=== PATIENT | female | born 1985 | race African-American/Black ===

== ENCOUNTER 2017-10-26 09:31 | Outpatient (CLI) | payer MEDICAID ==
--- NOTE | 2017-10-26 11:17 | RAD ---
CERVICAL SPINE THREE VIEWS: HISTORY: Neck pain. COMPARISON: None. FINDINGS: Three views of the cervical spine show normal height and alignment of the vertebral bodies and interv ertebral disks without fracture or subluxation. No degenerative changes are seen. No prevertebral s oft tissue swelling is present. IMPRESSION: Unremarkable exam. POS: [facility]
--- NOTE | 2017-10-26 11:25 | RAD ---
RIGHT KNEE FOUR VIEWS: 10/26/2017 HISTORY: Right knee pain. COMPARISON: None. FINDINGS: Mild medial compartment narrowing. No fracture or dislocation. No knee joint effusion. IMPRESSION: No acute osseous abnormality. POS: [facility]
--- NOTE | 2017-10-26 11:32 | RAD ---
LEFT KNEE FOUR VIEWS: HISTORY: Left knee pain. FINDINGS: Joint spaces are preserved. No acute fracture, dislocation, or fluid distention of the suprapatellar bursa. IMPRESSION: No acute osseous abnormalities are demonstrated. POS: [facility]
== END 2017-10-26 09:32 | disposition home or self-care (01) ==
LOC: RAD 09:31
DX: M54.2 Cervicalgia (principal); M25.562 Pain in left knee; M25.561 Pain in right knee
CPT/HCPCS: 72040

== ENCOUNTER 2018-03-20 17:00 | Outpatient (CLI) | payer MEDICAID | END 2018-03-20 17:01 | disposition home or self-care (01) | LOC: SLEEPLAB 17:00 | PROVIDERS: ATTEND Otolaryngology Plastic Surgery within the Head & Neck | DX: G47.33 Obstructive sleep apnea (adult) (pediatric) (principal); R06.83 Snoring; R53.83 Other fatigue | CPT/HCPCS: 95806 ==

== ENCOUNTER 2018-04-24 08:27 | Outpatient (CLI) | payer MEDICAID, OTHER ==
--- NOTE | 2018-04-24 09:41 | RAD ---
PA AND LATERAL CHEST: History: Smoker. FINDINGS: Heart size and mediastinum are within normal limits. The lungs are clear of any focal infiltrative pr ocess. No significant bony findings. IMPRESSION: No active intrathoracic disease. POS: [facility]
== END 2018-04-24 08:28 | disposition home or self-care (01) ==
LOC: RAD 08:27
DX: F17.200 Nicotine dependence, unspecified, uncomplicated (principal)
CPT/HCPCS: 71046

== ENCOUNTER 2018-04-24 20:30 | Outpatient (CLI) | payer OTHER | END 2018-04-24 20:31 | disposition home or self-care (01) | LOC: SLEEPLAB 20:30 | PROVIDERS: ATTEND Otolaryngology Plastic Surgery within the Head & Neck | DX: G47.33 Obstructive sleep apnea (adult) (pediatric) (principal); R53.83 Other fatigue; R09.89 Other specified symptoms and signs involving the circulatory and respiratory systems; R06.83 Snoring; G47.00 Insomnia, unspecified; G47.10 Hypersomnia, unspecified; G47.12 Idiopathic hypersomnia without long sleep time; Z68.24 Body mass index [BMI] 24.0-24.9, adult | CPT/HCPCS: 95810 ==

== ENCOUNTER 2018-05-15 08:17 | Outpatient (CLI) | payer OTHER | END 2018-05-15 08:18 | disposition home or self-care (01) | LOC: CTENTCT 08:17 | PROVIDERS: ATTEND Otolaryngology Plastic Surgery within the Head & Neck | DX: J32.9 Chronic sinusitis, unspecified (principal) | CPT/HCPCS: 70486 ==

== ENCOUNTER 2018-06-14 08:25 | Day surgery (SDC) | payer OTHER ==
[2018-06-13 13:59] VITALS: BMI 26.5
[2018-06-14] MEDS ORDERED: Oxymetazoline HCl 0.05% ( 15 ML ) ONE ×2 (09:56→10:59)
[2018-06-14] MEDS ORDERED: Lidocaine 1% w/Epinephrine 1:100K 20 ML VIAL ONE (10:59)
[2018-06-14] MEDS ORDERED: Bacitracin Zinc Ointment 30 gm TUBE ONE (10:59)
[2018-06-14] MEDS ORDERED: Fentanyl 100 MCG/2 ML VIAL ONE ×3 (11:03→12:31)
[2018-06-14] MEDS ORDERED: methylPREDNISolone Acetate 40 mg/ml Vial ONE (11:04)
[2018-06-14] MEDS ORDERED: Ondansetron PF 4 MG/2 ML Vial ONE (12:02)
[2018-06-14] MEDS ORDERED: PROPOFOL 200 MG/20 ML VIAL ONE (12:02)
[2018-06-14] MEDS ORDERED: Rocuronium Bromide 10 MG/ML (10ML VIAL) ONE (12:02)
[2018-06-14] MEDS ORDERED: Lidocaine 1% PF 5 ML VIAL ONE (12:02)
[2018-06-14] MEDS ORDERED: Glycopyrrolate 0.2 MG/ML 5 ML SYRINGE ONE (12:02)
[2018-06-14] MEDS ORDERED: Dexamethasone 20 MG/5 ML VIAL ONE (12:02)
[2018-06-14] MEDS ORDERED: Morphine 2 MG/ML SYRINGE ONE (13:28)
[2018-06-14] MEDS ORDERED: Hydrocodone-Acetamin 15 ML UDCUP ONE (14:33)
--- NOTE | 2018-06-15 12:50 | OP ---
DATE OF PROCEDURE: 06/14/2018 PREOPERATIVE DIAGNOSES: 1. Chronic rhinosinusitis. 2. Bilateral inferior turbinate hypertrophy. 3. Nasal obstruction. POSTOPERATIVE DIAGNOSES: 1. Chronic rhinosinusitis. 2. Bilateral inferior turbinate hypertrophy. 3. Nasal obstruction. PROCEDURES PERFORMED: 1. Bilateral endoscopic sinus surgery, total ethmoidectomies. 2. Bilateral endoscopic sinus surgery, maxillary antrostomies. 3. Bilateral endoscopic sinus surgery, frontal sinusotomies. 4. Bilateral inferior turbinate submucosal resection. ESTIMATED BLOOD LOSS: 20 mL. COMPLICATIONS: None. ANESTHESIA: GETA. DESCRIPTION OF PROCEDURE: The patient was taken to the operating room and placed supine on the table. General endotracheal anesthesia was obtained by the anesthesia staff. Tube was secured in the left lower lip. The patient was then placed in the beach chair position. Afrin pledgets were placed in the nasal cavity as the patient was prepped and draped for standard nasal procedure. Following this, the Afrin pledgets were removed. A 0 degree endoscope was then used to examine the nasal cavity. Inferior turbinates were noted to be enlarged and the middle turbinates were red and inflamed bilaterally. Using a [place] elevator, the middle turbinates were gently medialized, and the uncinate process was exposed bilaterally. A ball-ended probe was used to anteriorly fracture the uncinate process bilaterally, and the uncinate was removed using the upbiting Blakesley forceps and a 0-degree microdebrider. Following this, the natural maxillary sinus ostia was identified and was gently widened using the curved microdebrider bilaterally. Following this, ethmoidal bulla was identified and was punctured on its medial and inferior aspect bilaterally. The ethmoidal bulla was then removed using the 0-degree microdebrider and upbiting Blakesley forceps. Following this, the grand lamella was identified and was punctured into the posterior ethmoidal cells. Working from posterior to anterior, the ethmoidal cells were opened in a mucosal sparing technique. Following this, a 45-degree endoscope along with a 40-degree microdebrider blade was used to further open the frontal recess and frontal sinus ostia bilaterally. Following this, nasal cavity was irrigated. Mirapex was placed within the middle meatus. The inferior turbinates were then punctured on the anterior and inferior aspect using the submucosal microdebrider blade, and submucosal microdebridement was performed bilaterally of the anterior and inferior portions of the inferior turbinates bilaterally. The patient tolerated the procedure well. Job ID: [id number]
== END 2018-06-14 15:20 | disposition home or self-care (01) ==
LOC: SDC 08:25
PROVIDERS: ATTEND Otolaryngology Plastic Surgery within the Head & Neck
PROC: 099S8ZZ Drainage of Right Frontal Sinus, Via Natural or Artificial Opening Endoscopic (ICD-10-PCS; principal; 2018-06-14)
PROC: 09TV8ZZ Resection of Left Ethmoid Sinus, Via Natural or Artificial Opening Endoscopic (ICD-10-PCS; principal; 2018-06-14)
PROC: 099R8ZZ Drainage of Left Maxillary Sinus, Via Natural or Artificial Opening Endoscopic (ICD-10-PCS; principal; 2018-06-14)
PROC: 099Q8ZZ Drainage of Right Maxillary Sinus, Via Natural or Artificial Opening Endoscopic (ICD-10-PCS; principal; 2018-06-14)
PROC: 09TU8ZZ Resection of Right Ethmoid Sinus, Via Natural or Artificial Opening Endoscopic (ICD-10-PCS; principal; 2018-06-14)
PROC: 099T8ZZ Drainage of Left Frontal Sinus, Via Natural or Artificial Opening Endoscopic (ICD-10-PCS; principal; 2018-06-14)
PROC: 09TL0ZZ Resection of Nasal Turbinate, Open Approach (ICD-10-PCS; principal; 2018-06-14)
DX: J32.0 Chronic maxillary sinusitis (principal); J34.3 Hypertrophy of nasal turbinates; J34.89 Other specified disorders of nose and nasal sinuses; J34.2 Deviated nasal septum; F17.200 Nicotine dependence, unspecified, uncomplicated; Z79.899 Other long term (current) drug therapy
CPT/HCPCS: 85014; J1030; J1100; J2001; J2270; J2405; J2704; J3010

== ENCOUNTER 2021-11-09 01:50 | Emergency (ER) | payer OTHER | END 2021-11-09 02:11 | disposition left against medical advice (07) | LOC: ERS 01:50 | DX: Z53.21 Procedure and treatment not carried out due to patient leaving prior to being seen by health care provider (principal) ==